=== PATIENT | male | born 1980 ===

== ENCOUNTER 2025-06-12 14:18 | Inpatient (IN) | payer OTHER, SELFPAY ==
[2025-06-12] VITALS (10 sets, daily range): BP systolic 130–168; BP diastolic 87–96; PULSE 79–101; RESP 15–23; TEMP 36.5–36.8; O2SAT 93–96; BMI 28.1
--- NOTE | 2025-06-12 14:30 | DI.CT.S_ITS ---
PROCEDURE: CT STROKE INDICATIONS: Left facial droop right limb tingling TECHNIQUE: Noncontrast 4.5 mm thick angled axial sections acquired from the foramen magnum to the vertex, with coronal reformats. For radiation dose reduction, the following was used: automated exposure control, adjustment of mA and/or kV according to patient size. COMPARISON: [facility], CT, CT ANGIO HEAD AND NECK, 06/12/2025, 14:38. FINDINGS: Image quality: Diagnostic. CSF spaces: Basal cisterns are patent. No extra-axial fluid collections. Ventricles are normal in size and shape. Brain: No midline shift. No intracranial mass effect or hemorrhage. Del Cid- white matter interface is normal. Skull and face: Calvarium and visualized facial bones are intact, without suspicious lesions. Sinuses: Visualized sinuses and mastoids are clear. IMPRESSION: No acute intracranial pathology. No acute intracranial hemorrhage is seen. If there is strong clinical suspicion for an acute stroke, please consider a brain MRI for further evaluation, as it is more sensitive (assuming that there is no contraindication to MRI). Note: Case discussed by telephone with Dr. Cross at 2:54 p.m. [place] time on June 12, 2025. This study fulfills neurological imaging criteria for inclusion or exclusion of acute stroke therapies based on available published neurological imaging guidelines. Dictated by: Jordan Gipson M.D. on 06/12/2025 at 13:52 Approved by: Jordan Gipson M.D. on 06/12/2025 at 13:54
--- NOTE | 2025-06-12 14:30 | EKG_ITS ---
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
--- NOTE | 2025-06-12 14:30 | DI.CT.S_ITS ---
PROCEDURE: CT ANGIO HEAD AND NECK INDICATIONS: Left facial droop right limb tingling TECHNIQUE: After the administration of intravenous contrast, 1 mm thick sections acquired from the aortic arch through the [place] of [place]. 3-dimensional uuxwhyc-wvjrwcmgp-pedhrsnsbk (MIP) and/or volume rendering reformats were acquired of the central intracranial vasculature and neck separately. For radiation dose reduction, the following was used: automated exposure control, adjustment of mA and/or kV according to patient size. COMPARISON: [facility], CT, CT STROKE, 06/12/2025, 14:38. FINDINGS: Image quality: There is streak artifact seen through the level of the shoulders. Cerebral CT Angiogram: Internal carotid arteries: No acute findings. Intracranial ICA are patent with no significant stenosis. No occlusion. No aneurysm. Anterior cerebral arteries: Unremarkable. No significant stenosis. No occlusion. No aneurysm. Middle cerebral arteries: Unremarkable. No significant stenosis. No occlusion. No aneurysm. Posterior cerebral arteries: Unremarkable. No significant stenosis. No occlusion. No aneurysm. Basilar artery: Unremarkable. No significant stenosis. No occlusion. No aneurysm. Vertebral arteries: Unremarkable as visualized. Dural venous sinuses: Unremarkable given phase of enhancement. Other: Arterial phase appearance of the brain parenchyma is unremarkable. Neck CT Angiogram: Internal carotid arteries: Unremarkable. No significant stenosis. No dissection or occlusion. Common carotid arteries: Unremarkable. No significant stenosis. No dissection or occlusion. External carotid arteries: Unremarkable. No occlusion. Vertebral arteries: Unremarkable. No significant stenosis. No dissection or occlusion. Aortic Arch and Mediastinum: Partially visualized aortic arch unremarkable without evidence of aneurysm. Origins of the great vessels unremarkable. Other: Arterial phase soft tissues of the neck and chest are unremarkable. Scrutiny is given to the course of the left facial nerve, including within the left parotid gland. No masses or other significant abnormalities can be seen. IMPRESSION: No imaging explanation is found for this patient's presenting symptoms. No significant intracranial arterial abnormality is seen. No significant abnormality is seen within the arteries of the neck. Note: Case discussed by telephone with Dr. Cross at 2:54 p.m. [place] time on June 12, 2025. Any quantitative measurements of stenosis were performed using NASCET criteria. Dictated by: Jordan Gipson M.D. on 06/12/2025 at 13:55 Approved by: Jordan Gipson M.D. on 06/12/2025 at 13:55
--- NOTE | 2025-06-12 14:32 | ED.NEUROSD ---
HPI - Neuro Symptoms/Deficit General Chief Complaint: Neuro Symptoms/Deficit Stated Complaint: stroke symptoms starting at 1300. Time Seen by Provider: 06/12/25 14:21 History of Present Illness HPI Narrative: Patient here with a friend. Onset 1.5 hours ago at 1:00 p.m. sudden onset of left facial droop and right upper extremity tingling. Patient does state sometimes his left eye feels dry. Patient denies any history heart attack strokes or diabetes no history of Escudero's palsy. 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 Related Data Home Medications ?Medication ?Instructions ?Recorded ?Confirmed evolocumab 140 mg/mL subcutaneous 140 mg SUBCUT Q2W 06/12/25 06/12/25 pen injector (Sherry Elias) lisdexamfetamine 40 mg capsule 40 mg PO QAM 06/12/25 06/12/25 trazodone 100 mg tablet 100 mg PO ONCE PM PRN insomnia 06/12/25 06/12/25 Allergies Allergy/AdvReac Type Severity Reaction Status Date / Time shrimp Allergy Intermediate Hives Verified 06/12/25 14:28 Review of Systems Review of Systems Narrative: GENERAL: Negative chills, fatigue, malaise, fever, sweats. HEENT: Negative sinus pain, ear pain, sore throat RESPIRATORY: Negative dyspnea, cough CARDIOVASCULAR: Negative chest pain, palpitations GASTROINTESTINAL: Negative vomiting, nausea, abdominal pain : Negative dysuria, frequency, hematuria MUSCULOSKELETAL: Negative muscle or bony pain SKIN: Negative rash, skin lesions NEUROLOGIC: Positive facial droop weakness, numbness ROS Unobtainable: All systems reviewed & are unremarkable except as noted in HPI and below Patient History Social History household members: spouse Smoking Status: Never smoker alcohol intake: never Exam Narrative Exam Narrative: GENERAL: in no distress, not toxic not dyspneic HEAD: Normocephalic. EYES: Pupils equal round ENT: Mucous membranes moist. NECK: Trachea midline. CARDIOVASCULAR: Regular rate and rhythm RESPIRATORY: Clear to auscultation. Breath sounds equal bilaterally. No wheezes, rales, or rhonchi. GASTROINTESTINAL: Abdomen soft, non-tender EXTREMITIES: No gross deformities. BACK: No flank tenderness. NEURO: AOx4. Clear speech, slight left lip droop, light touch feels different left forehead left face right arm and hand compared to the left side. Right thigh feels different on light touch compared to the left thigh. 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 Elevate each leg without drift. Negative pronator drift. Ojzyob-ib-zacv intact bilaterally SKIN: Warm and dry PSYCH: Not anxious, is cooperative Initial Vital Signs Initial Vital Signs: Vital Signs Pulse Rate 101 H 06/12/25 14:23 Blood Pressure 148/96 H 06/12/25 14:23 Pulse Oximetry 95 06/12/25 14:23 Scores NIH Stroke Scale Level of Conciousness: Alert, keenly responsive Ask month/age: Answers both questions correctly. Open/close eyes, close hand: Performs both tasks correctly Best gaze horizontal: Normal Visual pyle: No visual loss Facial palsy: Minor paralysis, flattened nasolabial fold, asymmetry on smiling Left arm drift: No drift for full 10 sec Right arm drift: No drift for full 10 sec Left leg drift: No drift for full 5 sec Right leg drift: No drift for full 5 sec Limb ataxia: Absent Sensory on face/arms/legs: Mild to moderate sensory loss, can tell touch Best language: No aphasia, normal Dysarthria: Normal Extinction or inattention: No abnormality Total NIH Stroke scale score: 2 Course Orders Ordered: Discontinued Medications Acetaminophen (Acetaminophen 325 Mg Tablet) 650 mg PO Q6H PRN PRN Reason: Fever/Mild Pain (1-3) Last Admin: 06/14/25 08:43 Dose: 650 mg Documented By: Admin: 06/13/25 15:11 Dose: 650 mg Documented By: Admin: 06/13/25 08:10 Dose: 650 mg Documented By: Admin: 06/12/25 23:59 Dose: 650 mg Documented By: Admin: 06/12/25 17:00 Dose: 650 mg Documented By: CHRIST Artificial Tears (Carboxymethylcellulose Drops) 1 drops EYE-BOTH PRN PRN PRN Reason: Dry Eye(s) Aspirin (Aspirin Ec 81 Mg Tablet) 81 mg PO NOW ONE Stop: 06/12/25 15:30 Last Admin: 06/12/25 15:42 Dose: 81 mg Documented By: CHRIST Aspirin (Aspirin Ec 81 Mg Tablet) 81 mg PO DAILY [facility] Last Admin: 06/14/25 08:43 Dose: 81 mg Documented By: Admin: 06/13/25 08:06 Dose: 81 mg Documented By: DAILY Atorvastatin Calcium (Atorvastatin 20 Mg Tablet) [address] [facility] Last Admin: 06/13/25 20:23 Dose: Not Given Documented By: Admin: 06/12/25 22:10 Dose: Not Given Documented By: Clopidogrel Bisulfate (Clopidogrel 75 Mg Tablet) 300 mg PO NOW ONE Stop: 06/12/25 15:30 Last Admin: 06/12/25 15:42 Dose: 300 mg Documented By: CHRIST Clopidogrel Bisulfate (Clopidogrel 75 Mg Tablet) [address] [facility] Last Admin: 06/14/25 08:43 Dose: 75 mg Documented By: Admin: 06/13/25 08:06 Dose: 75 mg Documented By: DAILY Sodium Chloride (Normal Saline 0.9%) 500 mls @ 1,000 mls/hr IV BOLUS ONE Stop: 06/12/25 15:00 Last Infusion: 06/12/25 15:39 Dose: Infused Documented By: Admin: 06/12/25 14:55 Dose: 1,000 mls/hr Documented By: CHRIST Metoclopramide HCl (Metoclopramide Hcl 5 Mg Tablet) 10 mg PO Q6H PRN PRN Reason: Nausea Naloxone HCl (Naloxone 0.4 Mg/Ml Vial) 0.2 mg IV Q2MIN PRN PRN Reason: Opiate Reversal Ondansetron HCl (Ondansetron 4 Mg/2 Ml Inj) 4 mg IV NOW ONE Stop: 06/12/25 14:34 Last Admin: 06/12/25 14:46 Dose: 4 mg Documented By: CHRIST Ondansetron HCl (Ondansetron 4 Mg/2 Ml Inj) 4 mg IV Q4HR PRN PRN Reason: Nausea And Vomiting Last Admin: 06/14/25 13:12 Dose: 4 mg Documented By: Admin: 06/13/25 18:10 Dose: 4 mg Documented By: Admin: 06/13/25 11:37 Dose: 4 mg Documented By: Admin: 06/13/25 08:09 Dose: 4 mg Documented By: Admin: 06/13/25 00:00 Dose: 4 mg Documented By: Admin: 06/12/25 18:23 Dose: 4 mg Documented By: JOSE DE JESUS Oxycodone HCl (Oxycodone Ir 5 Mg Tablet) 5 mg PO NOW ONE Stop: 06/12/25 17:41 Last Admin: 06/12/25 18:23 Dose: 5 mg Documented By: JOSE DE JESUS Oxycodone HCl (Oxycodone Ir 5 Mg Tablet) 5 mg PO Q4HR PRN PRN Reason: Pain, Moderate (4-6) Last Admin: 06/14/25 03:16 Dose: 5 mg Documented By: Admin: 06/13/25 18:49 Dose: 5 mg Documented By: Admin: 06/13/25 08:09 Dose: 5 mg Documented By: Admin: 06/13/25 00:00 Dose: 5 mg Documented By: Polyethylene Glycol (Polyethylene Glycol 3350 17 Gm Powd.Pack) [address] [facility] Last Admin: 06/14/25 10:57 Dose: 17 gm Documented By: AUGUST Prednisone (Prednisone 20 Mg Tablet) [address] [facility] Last Admin: 06/14/25 08:44 Dose: 50 mg Documented By: Admin: 06/13/25 08:06 Dose: 50 mg Documented By: Admin: 06/12/25 18:23 Dose: 50 mg Documented By: JOSE DE JESUS Prochlorperazine (Prochlorperazine 10 Mg/2 Ml Vial) 5 mg IV NOW ONE Stop: 06/13/25 16:46 Last Admin: 06/13/25 21:45 Dose: Not Given Documented By: TRACY Prochlorperazine (Prochlorperazine 10 Mg/2 Ml Vial) 5 mg IV NOW ONE Stop: 06/13/25 21:46 Last Admin: 06/13/25 21:46 Dose: 5 mg Documented By: TRACY Prochlorperazine (Prochlorperazine 10 Mg/2 Ml Vial) 10 mg IV Q6H PRN PRN Reason: Nausea Last Admin: 06/14/25 10:57 Dose: 10 mg Documented By: AUGUST Sennosides (Sennosides 8.6 Mg Tablet) 8.[address] [facility] Sodium Chloride (Sodium Chloride 0.9% Flush) [address] [facility] Last Admin: 06/14/25 08:44 Dose: 10 ml Documented By: AUGUST Sodium Chloride (Sodium Chloride 0.9% Flush) 10 ml IV PRN PRN PRN Reason: Flush Trazodone HCl (Trazodone 50 Mg Tablet) [address] [facility] Last Admin: 06/13/25 21:45 Dose: Not Given Documented By: TRACY Valacyclovir HCl (Valacyclovir 500 Mg Tablet) 1,[address] [facility] Last Admin: 06/14/25 08:48 Dose: 1,000 mg Documented By: Admin: 06/13/25 21:39 Dose: 1,000 mg Documented By: Admin: 06/13/25 15:09 Dose: 1,000 mg Documented By: Admin: 06/13/25 08:06 Dose: 1,000 mg Documented By: Admin: 06/12/25 21:41 Dose: 1,000 mg Documented By: Admin: 06/12/25 18:24 Dose: 1,000 mg Documented By: JOSE DE JESUS Vital Signs Vital signs: Vital Signs - 8 hr 06/12/25 14:23 06/12/25 14:23 06/12/25 14:28 Temperature 98.2 F Pulse Rate 101 H 101 H Respiratory Rate 16 Blood Pressure 148/96 H 148/96 H Pulse Oximetry 95 95 Oxygen Delivery Method Room Air 06/12/25 14:30 06/12/25 14:33 06/12/25 14:33 Temperature Pulse Rate 100 H 92 H Respiratory Rate Blood Pressure 168/96 H Pulse Oximetry 96 94 Oxygen Delivery Method 06/12/25 14:44 06/12/25 14:44 Temperature Pulse Rate 101 H Respiratory Rate 18 Blood Pressure 138/87 Pulse Oximetry 93 Oxygen Delivery Method Room Air MDM - Neuro Symptoms/Deficit Lab Data 06/12/25 14:31 06/12/25 14:31 Labs: Lab Results 06/12/25 06/12/25 Range/Units 14:24 14:31 WBC 4.6 (4.5-11.0) X10^3/uL RBC 5.12 (4.5-5.9) X10^6/uL Hgb 13.7 (13.5-17.5) g/dL Hct 40.5 L (41-53) % MCV 79.1 L (80-100) fL MCH 26.7 (26-34) PG MCHC 33.8 (30-36) % RDW 15.0 H (11.6-14.8) % Plt Count 237 (150-400) X10^3/uL Neut % (Auto) 51.0 (50-75) % Lymph % (Auto) 38.3 (25-40) % Miller % (Auto) 7.3 (3-14) % Eos % (Auto) 2.6 (2-4) % Baso % (Auto) 0.8 (0-2) % Neut # (Auto) 2400 (1455-2018) /uL Lymph # (Auto) 1800 (0018-2861) /uL Miller # (Auto) 300 (0-900) /uL Eos # (Auto) 100 (0-450) /uL Baso # (Auto) 0 (0-100) /uL PT 11.3 (9.4-12.5) SECONDS INR 1.0 (0.9-1.3) APTT 29 (25.1-36.5) SECONDS Sodium 138 (137-145) mmol/L Potassium 3.7 (3.4-5.1) mmol/L Chloride 105 (98-107) mmol/L Carbon Dioxide 25 (22-32) mmol/L BUN 14 (9-20) mg/dL Creatinine 0.82 (0.66-1.25) mg/dL Estimated GFR > 60 (>60) mL/min BUN/Creatinine Ratio 17.1 (6-22) Glucose 94 (70-99) mg/dL POC Whole Bld Glucose 86 (70-99) mg/dL Hemoglobin A1c 5.5 (4.0-6.0) % Calcium 9.1 (8.4-10.2) mg/dL Total Bilirubin 0.7 (0.2-1.3) mg/dL AST 36 (17-59) IU/L ALT 37 (<50) IU/L Alkaline Phosphatase 117 (38-126) U/L Total Creatine Kinase 220 H (55-170) U/L Troponin I < 0.012 (0.01-0.034) ng/mL Total Protein 7.9 (6.3-8.2) g/dL Albumin 4.7 (3.5-5.0) g/dL Globulin 3.2 (1.7-4.1) g/dL Albumin/Globulin Ratio 1.5 (1.0-2.8) Triglycerides 86 (35-150) mg/dL Cholesterol 118 L (140-199) mg/dL LDL Cholesterol, Calc 51 (<100) mg/dL HDL Cholesterol 50 (40-60) mg/dL Imaging Data CT scan - head: Radiologist's Impression: [address] [address] [address] Scan Report Signed Patient: Jose Elias Hussein MR#: [id number] : 1980 Acct:[id number] Age/Sex: 45 / M Date of Service: 06/12/25 Loc: ED Accession Number: [id number] Procedure: CT Stroke Ordering Provider: Son Cross MD PROCEDURE: CT STROKE INDICATIONS: Left facial droop right limb tingling TECHNIQUE: Noncontrast 4.5 mm thick angled axial sections acquired from the foramen magnum to the vertex, with coronal reformats. For radiation dose reduction, the following was used: automated exposure control, adjustment of mA and/or kV according to patient size. COMPARISON: [facility], CT, CT ANGIO HEAD AND NECK, 06/12/2025, 14:38. FINDINGS: Image quality: Diagnostic. CSF spaces: Basal cisterns are patent. No extra-axial fluid collections. Ventricles are normal in size and shape. Brain: No midline shift. No intracranial mass effect or hemorrhage. Del C[place]-white matter interface is normal. Skull and face: Calvarium and visualized facial bones are intact, without suspicious lesions. Sinuses: Visualized sinuses and mastoids are clear. IMPRESSION: No acute intracranial pathology. No acute intracranial hemorrhage is seen. If there is strong clinical suspicion for an acute stroke, please consider a brain MRI for further evaluation, as it is more sensitive (assuming that there is no contraindication to MRI). Note: Case discussed by telephone with Dr. Cross at 2:54 p.m. [place] time on June 12, 2025. This study fulfills neurological imaging criteria for inclusion or exclusion of acute stroke therapies based on available published neurological imaging guidelines. Dictated by: Jordan Gipson M.D. on 06/12/2025 at 13:52 Approved by: Jordan Gipson M.D. on 06/12/2025 at 13:54 CTA - brain/neck: Radiologist's Impression: [address] [address] [address] Scan Report Signed Patient: Jose Elias Hussein MR#: [id number] : 1980 Acct:[id number] Age/Sex: 45 / M Date of Service: 06/12/25 Loc: ED Accession Number: [id number] Procedure: CT angio head and neck Ordering Provider: Son Cross MD PROCEDURE: CT ANGIO HEAD AND NECK INDICATIONS: Left facial droop right limb tingling TECHNIQUE: After the administration of intravenous contrast, 1 mm thick sections acquired from the aortic arch through the [place] of [place]. 3-dimensional wxluzai-caafzckcc-qvmdkwrgnm (MIP) and/or volume rendering reformats were acquired of the central intracranial vasculature and neck separately. For radiation dose reduction, the following was used: automated exposure control, adjustment of mA and/or kV according to patient size. COMPARISON: [facility], CT, CT STROKE, 06/12/2025, 14:38. FINDINGS: Image quality: There is streak artifact seen through the level of the shoulders. Cerebral CT Angiogram: Internal carotid arteries: No acute findings. Intracranial ICA are patent with no significant stenosis. No occlusion. No aneurysm. Anterior cerebral arteries: Unremarkable. No significant stenosis. No occlusion. No aneurysm. Middle cerebral arteries: Unremarkable. No significant stenosis. No occlusion. No aneurysm. Posterior cerebral arteries: Unremarkable. No significant stenosis. No occlusion. No aneurysm. Basilar artery: Unremarkable. No significant stenosis. No occlusion. No aneurysm. Vertebral arteries: Unremarkable as visualized. Dural venous sinuses: Unremarkable given phase of enhancement. Other: Arterial phase appearance of the brain parenchyma is unremarkable. Neck CT Angiogram: Internal carotid arteries: Unremarkable. No significant stenosis. No dissection or occlusion. Common carotid arteries: Unremarkable. No significant stenosis. No dissection or occlusion. External carotid arteries: Unremarkable. No occlusion. Vertebral arteries: Unremarkable. No significant stenosis. No dissection or occlusion. Aortic Arch and Mediastinum: Partially visualized aortic arch unremarkable without evidence of aneurysm. Origins of the great vessels unremarkable. Other: Arterial phase soft tissues of the neck and chest are unremarkable. Scrutiny is given to the course of the left facial nerve, including within the left parotid gland. No masses or other significant abnormalities can be seen. IMPRESSION: No imaging explanation is found for this patient's presenting symptoms. No significant intracranial arterial abnormality is seen. No significant abnormality is seen within the arteries of the neck. Note: Case discussed by telephone with Dr. Brennick at 2:54 p.m. [place] time on June 12, 2025. Any quantitative measurements of stenosis were performed using NASCET criteria. Dictated by: Jordan Gipson M.D. on 06/12/2025 at 13:55 Approved by: Jordan Gipson M.D. on 06/12/2025 at 13:55 [facility] Narrative Medical decision making narrative: Patient here with a friend. Onset 1.5 hours ago at 1:00 p.m. sudden onset of left facial droop and right upper extremity tingling. Patient does state sometimes his left eye feels dry. Patient denies any history heart attack strokes or diabetes no history of Escudero's palsy. 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 After history and exam, CT head CT angio head and neck normal saline EKG CBC CMP troponin [facility] Medical records reviewed: No recent visit for this complaint Differential considered: Includes but not limited to stroke TIA Escudero's palsy Lab Test results independently reviewed as above. Pertinent findings: WBC 4.6 hemoglobin 13.7 INR 1.0 sodium 138 potassium 3.7 glucose 94 troponin less than 0.012 Independently reviewed EKG normal sinus rhythm rate 98 Imaging studies independently reviewed: 2:[address] head without contrast no acute finding reviewed with radiologist, CT angiogram head and neck no acute finding Consultations: 3:03 p.m.. On phone, with [facility] tele stroke. Awaiting for neurologist. 3:[address] vigil, she will get her attending to likely tele video with patient. 3:18 p.m.. Neurologist has called back from [facility]. She states she spoke with her attending. No TNK or tPA at this time. Score of 2. Not debilitating symptoms. They will call back. Proceed with dual platelets and MRI. Patient to be admitted for observation No teleconference needed at this time. As they are not doing TNK. 3:25 p.m.. I spoke with hospitalist, Dr. Carr, he will admit patient Re-evaluations: 3:23 p.m.. Updated patient results and my discussion with [facility] tele stroke. No TNK at this time as low NIH score and not debilitating symptoms. 3:32 p.m.. Updated patient treatment plan he does agree. Admission MRI echocardiogram dual antiplatelet therapy. He is on Repatha for cholesterol, he is not on any antiplatelets. Discussion: Appropriate for admission for balance of workup for possible TIA/stroke. Diagnosis: Left facial droop Discharge Plan Departure Patient Disposition: Admitted as Observation Clinical Impression: Facial droop Admit Date/Time: 06/12/25 15:47 Admit Provider: Luis Armando Carr
[2025-06-12 14:40] LABS: Add Manual Diff / Slide Review NO; Hematocrit 40.5 % (41-53); Hemoglobin 13.7 g/dL (13.5-17.5); Lymphocytes Absolute Auto 1800 /uL (1100-4500); Mean Corpuscular HGB Conc 33.8 % (30-36); Mean Corpuscular Hemoglobin 26.7 PG (26-34); Mean Corpuscular Volume 79.1 fL (80-100); Platelet Count 237 X10^3/uL (150-400)
[2025-06-12 14:46] LABS: INR 1.0 (0.9-1.3); Prothrombin Time 11.3 SECONDS (9.4-12.5)
[2025-06-12] MEDS: ONDANSETRON 4 MG/2 ML INJ IV ×2 (14:46→18:23)
[2025-06-12 14:49] LABS: PTT Partial Thromboplastin Tim 29 SECONDS (25.1-36.5)
[2025-06-12 14:50] LABS: Alanine Aminotransferase 37 IU/L (<50); Albumin 4.7 g/dL (3.5-5.0); Albumin Globulin Ratio 1.5 (1.0-2.8); Alkaline Phosphatase 117 U/L (38-126); Blood Urea Nitrogen 14 mg/dL (9-20); Calcium 9.1 mg/dL (8.4-10.2); Carbon Dioxide 25 mmol/L (22-32); Chloride 105 mmol/L (98-107); Creatine Kinase 220 U/L (55-170); Estimated Glomerular Filt Rate > 60 mL/min (>60); Globulin 3.2 g/dL (1.7-4.1); Glucose 94 mg/dL (70-99); HEMOLYSIS < 15 (0-50); Potassium 3.7 mmol/L (3.4-5.1); Sodium 138 mmol/L (137-145); Total Protein 7.9 g/dL (6.3-8.2)
[2025-06-12] MEDS: SODIUM CHLORIDE 0.9% 500 ML 1000 ML IV (14:55)
[2025-06-12 15:02] LABS: Troponin I < 0.012 ng/mL (0.01-0.034)
[2025-06-12] MEDS: CLOPIDOGREL 75 MG TABLET 300 MG PO (15:42)
[2025-06-12] MEDS: ASPIRIN EC 81 MG TABLET PO (15:42)
--- NOTE | 2025-06-12 16:03 | DI.MRI.S_ITS ---
PROCEDURE: MR HEAD/BRAIN WO CON INDICATIONS: TIA TECHNIQUE: Noncontrast axial T1 spin echo, axial T2 fast spin echo, sagittal and axial FLAIR, coronal T2 fast spin echo, axial gradient echo, axial diffusion and ADC through the brain. COMPARISON: [facility], CT, CT STROKE, 06/12/2025, 14:38. FINDINGS: Image quality: Excellent. CSF Spaces: Basal cisterns are patent. No extra-axial fluid collections. Ventricles are normal in size and shape. Brain: No intracranial masses or hemorrhage. Del Cid/white matter interface is normal. Brainstem appears normal. Diffusion-weighted images demonstrate no acute infarct. No chronic ischemic insults. Normal intravascular flow voids are present. Skull and face: Calvarium has normal marrow signal. Orbits appear normal. Sinuses: Sinuses and mastoids are clear. IMPRESSION: Unremarkable brain MRI. No acute intracranial process. Dictated by: Inocente Hughes M.D. on 06/12/2025 at 17:11 Approved by: Inocente Hughes M.D. on 06/12/2025 at 17:13
--- NOTE | 2025-06-12 16:16 | PM.HP.1 ---
History of Present Illness History of Present Illness Date Patient Seen: 06/12/25 Time Patient Seen: 17:00 Chief complaint: stroke symptoms starting at 1300. Narrative: Patient was a 45-year-old male with a known history of CAD with an LAD 20% stenosis as well as familial hyperlipidemia. He presents with a headache, right neck stiffness, a left facial droop, as well as not feeling right and mild tingling in the right side of his body. Some of the symptoms began yesterday but the neck pain and facial symptoms began today. 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 He was CT of the brain and CTA were negative. He was mildly hypertensive. Case was discussed with tele neuro in the emergency department with recommendations for dual antiplatelet therapy, although the probability was at this was early Escudero's palsy. The patient notes that he does have abnormal speech and some drooling as well as abnormal ability to control a breath puff. He was transferred to the floor where he was found to have a facial droop as well as a droopy left eye. MRI of the brain was ordered and was resulted as normal. [facility], [facility] Social History household members: spouse Smoking Status: Never smoker alcohol intake: never Meds Home Medications and Allergies Home Medications ?Medication ?Instructions ?Recorded ?Confirmed ?Type evolocumab 140 mg/mL subcutaneous 140 mg SUBCUT Q2W 06/12/25 06/12/25 History pen injector (Sherry Elias) lisdexamfetamine 40 mg capsule 40 mg PO QAM 06/12/25 06/12/25 History trazodone 100 mg tablet 100 mg PO ONCE PM PRN insomnia 06/12/25 06/12/25 History Allergies Allergy/AdvReac Type Severity Reaction Status Date / Time shrimp Allergy Intermediate Hives Verified 06/12/25 14:28 Review of Systems Review of Systems Narrative: All else reviewed and otherwise unremarkable except as noted in the history and physical. Exam Vital Signs (past 8 hours): - 06/12/25 14:23 06/12/25 14:23 06/12/25 14:28 Temperature 98.2 F Pulse Rate 101 H 101 H Respiratory Rate 16 Blood Pressure 148/96 H 148/96 H Pulse Oximetry 95 95 Oxygen Delivery Method Room Air 06/12/25 14:30 06/12/25 14:33 06/12/25 14:33 Temperature Pulse Rate 100 H 92 H Respiratory Rate Blood Pressure 168/96 H Pulse Oximetry 96 94 Oxygen Delivery Method 06/12/25 14:44 06/12/25 14:44 Temperature Pulse Rate 101 H Respiratory Rate 18 Blood Pressure 138/87 Pulse Oximetry 93 Oxygen Delivery Method Room Air Oxygen Delivery Method Room Air Narrative Exam Narrative: NAD, alert and oriented, fluent speech, calm. Normocephalic skull, EOMI, anicteric sclera, symmetric pupils. Oropharynx unremarkable, no droop. Neck supple, midline trachea, no adenopathy. Lungs clear, normal rate and effort. Heart regular, no murmur gallop or rub. Abdomen is soft, non distended and non tender. Extremities are free of edema. Skin is free of rash or lesions. Joints are not swollen or deformed. Judgment appears to be normal. Neuro: Motor strength is 5/5 all arms and legs. Negative pronator drift, normal tandem gait, normal toe to heel, normal walking on toes and heels. He does have a left facial droop which affects his eye with ptosis, as well as the entire left side of the same. There appears to be some less involvement of the left forehead. Objective Imaging Multiple studies:: Radiologist's impression: CT of the brain, CTA of the head and neck, and MRI of the brain are all normal. Labs 06/12/25 14:31 06/12/25 14:31 Labs: Laboratory Results - last 24 hr 06/12/25 06/12/25 14:24 14:31 WBC 4.6 RBC 5.12 Hgb 13.7 Hct 40.5 L MCV 79.1 L MCH 26.7 MCHC 33.8 RDW 15.0 H Plt Count 237 Neut % (Auto) 51.0 Lymph % (Auto) 38.3 [place] % (Auto) 7.3 Eos % (Auto) 2.6 Baso % (Auto) 0.8 Neut # (Auto) 2400 Lymph # (Auto) 1800 [place] # (Auto) 300 Eos # (Auto) 100 Baso # (Auto) 0 PT 11.3 INR 1.0 APTT 29 Sodium 138 Potassium 3.7 Chloride 105 Carbon Dioxide 25 BUN 14 Creatinine 0.82 Estimated GFR > 60 BUN/Creatinine Ratio 17.1 Glucose 94 POC Whole Bld Glucose 86 Calcium 9.1 Total Bilirubin 0.7 AST 36 ALT 37 Alkaline Phosphatase 117 Total Creatine Kinase 220 H Troponin I < 0.012 Total Protein 7.9 Albumin 4.7 Globulin 3.2 Albumin/Globulin Ratio 1.5 Assessment & Plan Assessment & Plan narrative: 1. 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 2. Transient right body tingling as well as right neck pain, present on admission and improving. 3. Hyperlipidemia, stable. 4. CAD, stable. Plan: -he was given aspirin load of Plavix load in the ED. He was on chronic injectable anti lipid therapy. The patient receives injections every 2 weeks. -he will be given oxycodone as needed for his neck pain. -he will be given prednisone 50 mg q.d. x5 days, and valacyclovir 1000 mg t.i.d. to treat Escudero's palsy. He will be observed overnight, anticipate 1 midnight in the hospital. This supports observation status. Full code. is proxy decision maker. Time-Based Coding :: 35 min spent with patient and on the chart (including review of chart, obtaining history, exam, reviewing outside data, placing orders, documenting exam and treatment plan, and counseling patient) on 06/12. Quality MIPS - Admit I confirm the patient?s Advance Care Plan is present, Code status is documented, Surrogate decision maker is in patient?s record [If Yes, STOP here]: Yes MIPS - Meds 'Current medications' to include all prescriptions, [id number] products, herbals, cannabis/cannabidiol products, and vitamin/mineral/dietary (nutritional) supplements. I have utilized all available resources to obtain, update, or review the patient?s current medications. [If Yes, STOP here]: Yes
--- NOTE | 2025-06-12 16:39 | PT.IIE ---
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 (Other details [place] visiting their new home ) Social History Additional Social Pt lives with , did not have time for full home History Comment arrangement questioning given design technician arrived M2 PT-IP Current Condition Start: 06/12/25 16:30 Freq: NEEDED Status: Active Protocol: Document 06/12/25 16:15 MB (Rec: 06/12/25 16:38 MB Desktop) Physical Therapy Current Condition Current Condition Evaluation Date 06/12/25 Treatment Diagnosis R facial droop and numbness and right UE and LE paresthesias M3 PT-IP Subjective Start: 06/12/25 16:30 Freq: NEEDED Status: Active Protocol: Document 06/12/25 16:15 MB (Rec: 06/12/25 16:38 MB Desktop) Subjective Physical Therapy Visit Type Type Initial Evaluation Visit Start Time 16:15 Visit Stop Time 16:30 Number of SALVAGE CLERK Visits 0 Physical Therapy Visit Comments Patient Comments Pt reports he felt like he had a cold with high discomfort in ears last night. He reports right facial droop and numbness, vision changes and right UE and LE paresthesias today. Therapy Pain Assessment Pain When Pain Assessed At Rest Pain Present Pain Present Denied Pain M4 PT-IP Mobility and Gait Start: 06/12/25 16:30 Freq: NEEDED Status: Active Protocol: Document 06/12/25 16:15 MB (Rec: 06/12/25 16:38 MB Desktop) PT-Bed Mobility Assessment Supine to Sit Supine to Sit Independent Scooting Scooting to Edge of Independent Bed Scooting Up and Down Independent in Bed PT-Transfer Assessment Sit to and From Stand Sit to and from Independent Stand Equipment Transfer Assistive None Device Transfer Ability Level of Assist Independent Gait Assessment Gait Gait Assistance Independent Required: Distance (Feet) 75 Assistive Devices Assistive Device None Gait Deviations General Gait Pattern Within Normal Limits Comments Gait Comments Fast and slow gait, backwards gait, gait with eyes closed and turns all normal Stair Climbing Assessment Comments Stair Climbing Unable to perform in ED Comments PT-Balance Assessment Sitting Balance and Reactions Static Sitting Normal Balance Ability Dynamic Sitting Normal Balance Ability Standing Balance and Reactions Static Standing Normal Balance Ability Dynamic Standing Good Balance Ability M5 PT-IP Objective Assessments Start: 06/12/25 16:30 Freq: NEEDED Status: Active Protocol: Document 06/12/25 16:15 MB (Rec: 06/12/25 16:38 MB Desktop) Orientation Orientation/Cognition Level of Alertness Alert Language Function No Deficits Noted Ability Safety Awareness Understands Safety Issues Memory Description No Deficits Noted Gross Range of Motion Upper Extremity ROM Assessment Within Functional Limits Lower Extremity ROM Assessment Within Functional Limits Strength Upper Extremity Strength Assessment Within Functional Limits Lower Extremity Strength Assessment Within Functional Limits Coordination Assessment Gross Coordination Gross Coordination Impaired Assessment Finger to Nose Test L hand slow, right handed Sensation Assessment Comments Sensation Comments Impaired right face, numb, smile droops on the right Muscle Tone Muscle Tone WNL Yes M7 PT-IP Assessment and Plan Start: 06/12/25 16:30 Freq: NEEDED Status: Active Protocol: Document 06/12/25 16:15 MB (Rec: 06/12/25 16:38 MB Desktop) PT Summary Assessment and Plan Potential Rehabilitation Good Potential Status of Condition Evolving at Evaluation Summary Impairments Coordination Assessment Summary 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 He presents with right facial droop and numbness and right UE and LE paresthesias. B UE and LE range and strength currently normal. Left finger to nose is slow and dysmetric and he reports mild vision changes and that he is right handed. Currently, he gait looks normal. Pt is going to be adm to floor and will keep him on PT caseload to further assess LE coordination, balance and steps next date to make sure that there is no progression of sxs and to adjust d/c recs as appropriate. Currently, no PT needs at d/c. Goals Bed Mobility Goal Independent Transfer Goal Independent Gait Goal Independent Gait Distance 200 Other Goals Pt will ascend and descend steps without rail and with I. Days to Meet Goals 5 Frequency of Treatment Frequency Of Once a Day Treatment Treatment Plan Physical Therapy Bed Mobility Training,Transfer Training,Gait Training, Treatment Plan Therapeutic Exercise,Balance Retraining,Discharge Planning,Hot or Cold Pack,Neuromuscular Re-ed, Coordination Retraining,Manual Therapy Other LE coordination testing, stair training Recommendations and Next Treatment Focus Recommendations To Nursing Amount of Assist Standby Assistance Needed Discharge Recommendations Other Discharge Currently, no PT needs at d/c and re-evaluate next date Recommendations and update as needed Transportation Needs Private Vehicle at Discharge - PT assist x1
[2025-06-12] MEDS: ACETAMINOPHEN 325 MG TABLET 650 MG PO ×2 (17:00→23:59)
[2025-06-12 17:32] LABS: Cholesterol 118 mg/dL (140-199); HDL Cholesterol 50 mg/dL (40-60); Triglycerides 86 mg/dL (35-150)
[2025-06-12 17:33] LABS: Hemoglobin A1C% w Est Avg Glu 5.5 % (4.0-6.0)
[2025-06-12] MEDS: OXYCODONE IR 5 MG TABLET PO (18:23)
[2025-06-13] VITALS: BP 106/62; PULSE 67; RESP 16; TEMP 36.3; O2SAT 96
[2025-06-13 06:00] VITALS: BP 121/89; PULSE 73; RESP 15; TEMP 36.6; O2SAT 98
[2025-06-13 07:11] LABS: Cholesterol 129 mg/dL (140-199); HDL Cholesterol 55 mg/dL (40-60); Triglycerides 48 mg/dL (35-150)
--- NOTE | 2025-06-13 07:47 | DI.MRI.S_ITS ---
PROCEDURE: MR HEAD/BRAIN WO/W CON INDICATIONS: new neuro symptoms TECHNIQUE: Noncontrast axial T1 spin echo, axial T2 fast spin echo, sagittal and axial FLAIR, coronal T2 fast spin echo, axial gradient echo, axial diffusion and ADC through the brain. After the administration of contrast, axial and coronal and sagittal 3D VIBE or T1 spin echo with fat saturation through the brain. COMPARISON: [facility], CT, CT ANGIO HEAD AND NECK, 06/12/2025, 14:38. [facility], CT, CT STROKE, 06/12/2025, 14:38. FINDINGS: Image quality: Excellent. CSF Spaces: Basal cisterns are patent. No extra-axial fluid collections. Ventricles are normal in size and shape. Brain: No midline shift. No intracranial bleeds or masses. No abnormal intracranial enhancement. The brainstem appears normal. Diffusion-weighted images demonstrate no acute infarct. No chronic ischemic insults. Normal intravascular flow voids are present. Skull and face: Calvarial marrow is normal in signal. Orbits appear normal. Sinuses: Sinuses and mastoids appear clear. IMPRESSION: Normal for age, source of reported symptomatology is not identified. Dictated by: Sha Alonzo M.D. on 06/13/2025 at 13:06 Approved by: Sha Alonzo M.D. on 06/13/2025 at 13:09
[2025-06-13 08:00] VITALS: BP 135/90; PULSE 86; RESP 18; TEMP 36.3; O2SAT 94
[2025-06-13] MEDS: ASPIRIN EC 81 MG TABLET PO (08:06)
[2025-06-13] MEDS: CLOPIDOGREL 75 MG TABLET PO (08:06)
[2025-06-13] MEDS: ONDANSETRON 4 MG/2 ML INJ IV ×4 (08:09→18:10)
[2025-06-13] MEDS: OXYCODONE IR 5 MG TABLET PO ×3 (08:09→18:49)
[2025-06-13] MEDS: ACETAMINOPHEN 325 MG TABLET 650 MG PO ×2 (08:10→15:11)
[2025-06-13 12:00] VITALS: BP 138/87; PULSE 87; RESP 15; TEMP 36.3; O2SAT 94
--- NOTE | 2025-06-13 15:15 | PT.IPTN ---
Physical Therapy Treatment Note M2 PT-IP Current Condition Start: 06/12/25 16:30 Freq: NEEDED Status: Active Protocol: Document 06/12/25 16:15 MB (Rec: 06/12/25 16:38 MB Desktop) Physical Therapy Current Condition Current Condition Evaluation Date 06/12/25 Treatment Diagnosis R facial droop and numbness and right UE and LE paresthesias M3 PT-IP Subjective Start: 06/12/25 16:30 Freq: NEEDED Status: Active Protocol: Document 06/13/25 15:15 AB (Rec: 06/13/25 17:08 AB [id number]) Subjective Physical Therapy Visit Type Type Treatment Note Visit Start Time 15:15 Visit Stop Time 15:40 Number of TRUCK FARMER Visits 0 Physical Therapy Visit Comments Patient Comments agreeable to do PT M4 PT-IP Mobility and Gait Start: 06/12/25 16:30 Freq: NEEDED Status: Active Protocol: Document 06/13/25 15:15 AB (Rec: 06/13/25 17:08 AB [id number]) PT-Bed Mobility Assessment Supine to Sit Supine to Sit Independent Sit to Supine Sit to Supine Independent PT-Transfer Assessment Sit to and From Stand Sit to and from Independent Stand Equipment Transfer Assistive None Device Orthotic/Prosthetic No Devices or Brace: Comments Mobility Comments pt supine in bed and agreeable to do PT. stated that R UE/LE numbness resolved but continues to have R facial numbness and weakness. R facial droop noted and c/o diplopia. weakness of R side oral muscles with speech. Also noted L side deviation of tongue. supine to sit mod I. sit to stand mod I and ambulated in room without AD SBA. pt agreed to walk in the hallway towards stairs and completed SBA for safety. pt presents with antalgic gait with increase R sided leaning but without LOB. pt completed up/down steps using R rail. initially complete step through pattern but with unsteadiness and cued pt for step to pattern for safety and completed steps again SBA. pt ambulated back to his room SBA without AD. pt requested to go back to bed. sit to supine I. positioned pt in bed. call light and table placed within reach. per social work lecturer: pt plans to transfer to [facility] later today. informed pt that no further PT intervention in hospital needed at this time but will need outpt therapy services. pt agreed. Gait Assessment Gait Gait Assistance Standby Assistance Required: Distance (Feet) 125 Able to Maintain Yes Weight Bearing Status During Gait Assistive Devices Assistive Device None Orthotic/Prosthetic No Devices or Brace: Gait Deviations General Gait Pattern Antalgic Factors Limiting Gait Function Factors Limiting Decreased Strength Gait Function Stair Climbing Assessment Evaluation Level of Assist On Contact Guard Assistance Stairs Devices Stair Climbing Right Railing Assistive Devices Technique/Endurance Stair Climbing Ascend and Descend Direction Stair Climbing Step Over Step,Step to Step Technique Number of Steps 3 Climbed Stair Climbing Set # 3 Repetitions (reps) M5 PT-IP Objective Assessments Start: 06/12/25 16:30 Freq: NEEDED Status: Active Protocol: Document 06/12/25 16:15 MB (Rec: 06/12/25 16:38 MB Desktop) Orientation Orientation/Cognition Level of Alertness Alert Language Function No Deficits Noted Ability Safety Awareness Understands Safety Issues Memory Description No Deficits Noted Gross Range of Motion Upper Extremity ROM Assessment Within Functional Limits Lower Extremity ROM Assessment Within Functional Limits Strength Upper Extremity Strength Assessment Within Functional Limits Lower Extremity Strength Assessment Within Functional Limits Coordination Assessment Gross Coordination Gross Coordination Impaired Assessment Finger to Nose Test L hand slow, right handed Sensation Assessment Comments Sensation Comments Impaired right face, numb, smile droops on the right Muscle Tone Muscle Tone WNL Yes M6 PT-IP Treatment Start: 06/12/25 16:30 Freq: NEEDED Status: Active Protocol: Document 06/13/25 15:15 AB (Rec: 06/13/25 17:08 AB [id number]) Physical Therapy Treatment Education Education Provided Safety M7 PT-IP Assessment and Plan Start: 06/12/25 16:30 Freq: NEEDED Status: Active Protocol: Document 06/13/25 15:15 AB (Rec: 06/13/25 17:08 AB [id number]) PT Summary Assessment and Plan Potential Rehabilitation Fair Potential Summary Impairments Strength,Sensation,Gait Progress Towards Slow Progress due to Medical Issues Goals Assessment Summary pt requiring SBA for safety for ambulation without AD. pt continues to present with R facial numbness and weakness affecting speech and swallowing. pt with c/o diplopia but able to be steady during ambulation without incidences or tendencies of running into things . no further in hospital PT intervention needed at this time but will require outpt speech/OT services. Goals Bed Mobility Goal Independent Transfer Goal Independent Gait Goal Independent Gait Distance 200 Other Goals Pt will ascend and descend steps without rail and with I. Days to Meet Goals 5 Frequency of Treatment Frequency Of Discharge Treatment Treatment Plan Physical Therapy Bed Mobility Training,Transfer Training,Gait Training, Treatment Plan Therapeutic Exercise,Balance Retraining,Discharge Planning,Hot or Cold Pack,Neuromuscular Re-ed, Coordination Retraining,Manual Therapy Recommendations To Nursing Amount of Assist Standby Assistance Needed Discharge Recommendations Transportation Needs Private Vehicle at Discharge - PT assist 1
--- NOTE | 2025-06-13 15:23 | CM.DANOTE ---
DCP Assessment Note: Pt is a 45yo male, resident of [place], is admitted for facial droop, work up for possible stroke or neurological symptoms. Pt lives in a house with his , was staying at his property on [address]. Pt's Primary Care Provider is at [facility] and insurance is [facility]. Reviewed chart and discussed with multidisciplinary team pt's medical status and initial discharge needs. DCP met w/patient at bedside; introduced self and role. Patient was found in bed, alert and oriented, cooperative with assessment. Pt confirmed living situation and good support in spouse. 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 Updated pt contacts with spouse and sister contact information. Pt verbalized understanding of transfer to [facility] for further neurology work up, confirmed that he will be transported via BLS. Plan: Accepted for transfer to higher level of care, pending bed assignment and transport coordination. CM team will follow closely for coordination of discharge plans. Luc[facility] Os[facility] Discharge Planning/Care Management CM Discharge Assessment Start: 06/12/25 15:48 Freq: Status: Active Protocol: Document 06/13/25 15:15 MW (Rec: 06/13/25 15:17 MW Desktop) Discharge Planning Assessment Assigned Discharge JENNIFER Chowdhury Floor Installer DPOA/Assigned Natalia Gregory, Spouse Designee Name Contact Information [phone] Advance Directives? No History Provided By Patient,Medical Record Prior Living House Arrangements Household Members spouse Type of Drives own vehicle transporation used prior to admit Independent with ADL Yes 's Is patient alert and Yes oriented? Barriers to No Discharge Discharge Plan Transfer to Higher Level of Care Transportation BLS Arrangement Review Status In Process Please Provide Date 06/13/25 Initial DC Assessment Was Performed Next Review Type Continued Stay Review
--- NOTE | 2025-06-13 16:26 | PM.DS.1 ---
History of Present Illness History of Present Illness Chief complaint: stroke symptoms starting at 1300. Narrative: Patient was a 45-year-old male with a known history of CAD with an LAD 20% stenosis as well as familial hyperlipidemia. He presents with a headache, right neck stiffness, a left facial droop, as well as not feeling right and mild tingling in the right side of his body. Some of the symptoms began yesterday but the neck pain and facial symptoms began today. 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 He was CT of the brain and CTA were negative. He was mildly hypertensive. Case was discussed with tele neuro in the emergency department with recommendations for dual antiplatelet therapy, although the probability was at this was early Escudero's palsy. The patient notes that he does have abnormal speech and some drooling as well as abnormal ability to control a breath puff. He was transferred to the floor where he was found to have a facial droop as well as a droopy left eye. MRI of the brain was ordered and was resulted as normal. Discharge Providers Provider Date of admission: 06/12/25 15:47 Discharge Date: 06/13/25 Consults: 06/12/25 16:03 Consult to Discharge Planning Routine Comment: Consult to Occupational Therapy Evaluate & Treat Comment: Physician Instructions: Evaluate and treat Consult to Physical Therapy Evaluate & Treat Comment: Physician Instructions: Evaluate and Treat Consult to Speech Therapy Evaluate & Treat Comment: Physician Instructions: Evaluate and treat Discharge provider: Luis Armando Carr MD Summary Hospital Course Discharge Diagnosis: 1. Right sided facial droop. 2. Headache. 3. Diplopia (right gaze) 4. Right sided body tingling 5. HLD 6. CAD Hospital Course: The patient was admitted with right-sided facial droop. The initial thought was that this is likely Escudero's palsy. His initial MRI, CTA and CT were negative. He was given dual antiplatelet therapy in the ED after discussion with tele neuro. The patient was started on prednisone and valacyclovir on June 12. On the morning of the he had a more pronounced right facial droop and complained of diplopia with rightward gaze. Extraocular movements were investigated in the morning of the and he did. Have some degree of disc cut conjugate gaze when looking to the right upper right lateral and right lower pyle. He also noted diplopia from his perspective. He had a more pronounced headache on the morning of the . A repeat MRI with contrast was unremarkable. He was discussed with tele neuro again and ultimately a transfer is recommended for further evaluation. There was concern of possible other diagnoses such as myasthenia gravis, or Wang Harrington syndrome. The patient did have normal reflexes in ankles, knees, and biceps bilaterally. He did not appear to have fatigability with his ptosis. The transfer center was contacted and he was accepted for an inpatient bed for further evaluation by Neurology. For the 1st 20 hours of admission he would forehead sparing but later in the afternoon of the he does have evidence of forehead involvement of his weakness which is more consistent with Escudero's palsy. However, he was also complaining of possible vertigo and diplopia which did not fit with that diagnosis. Status at Discharge Cognitive/behavioral status at discharge: oriented Functional status at discharge: independent ambulation Overall status at discharge: patient is progressing back to baseline Time Spent with Patient Time spent: Greater than 30 minutes Exam Vital Signs (past 8 hours): - 06/13/25 12:00 Temperature 97.4 F L Pulse Rate 87 Respiratory Rate 15 Blood Pressure 138/87 Pulse Oximetry 94 Oxygen Flow Rate 0 Oxygen Delivery Method Room Air Oxygen Flow Rate 0 Narrative Exam Narrative: NAD, alert and oriented. Fluent speech. Lungs are clear, normal rate and effort. Heart is regular, no murmur gallop or rub. Abdomen is soft, non distended. Extremities are free of edema. Motor strength normal in arms and legs, negative pronator drift, normal gait, normal tandem gait. Reflexes are normal in the ankles knees and biceps bilaterally. He has a right facial droop, right ptosis, a dry right eye, and in the afternoon of the a more pronounced flaccid forehead. He complains of diplopia with any gaze movements to the right upper right lateral are right lower pyle. He appears to have some degree of dysconjugate gaze in those failed. The diplopia is binocular. Objective Imaging Multiple studies: : Radiologist's impression: MRI brain with and without: IMPRESSION: Normal for age, source of reported symptomatology is not identified. CTA head and neck: No imaging explanation is found for this patient's presenting symptoms. No significant intracranial arterial abnormality is seen. No significant abnormality is seen within the arteries of the neck. MRI brain: Unremarkable brain MRI. No acute intracranial process. CT brain: No acute intracranial pathology. No acute intracranial hemorrhage is seen. Labs 06/12/25 14:31 06/12/25 14:31 Labs: Laboratory Results - last 24 hr 06/12/25 06/13/25 14:31 05:40 Hemoglobin A1c 5.5 Triglycerides 86 48 Cholesterol 118 L 129 L LDL Cholesterol, Calc 51 64 HDL Cholesterol 50 55 PFSH Social History household members: spouse Smoking Status: Never smoker alcohol intake: never Discharge Assessment & Plan Assessment and Plan Assessment: 1. Right sided facial droop. 2. Headache. 3. Diplopia (right gaze) 4. Right sided body tingling 5. HLD 6. CAD Plan of Treatment: Transfer to [facility] for neurologic evaluation. Note that this patient presented with what early Escudero's Tamai this looks more like Escudero's palsy now with forehead involvment. However the patient was complaining of diplopia which is not consistent with the diagnosis. This case was discussed with Neurology and he will require more advance neurologic evaluation. Discharge Plan Discharge Plan Patient Disposition: [facility] Other facility: [facility] VTE Deep Vein Thrombosis/Pulmonary Embolism Present on Admission: No
--- NOTE | 2025-06-13 17:47 | OT.IP.EVAL ---
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 (Other details [place] visiting their new home ) Social History Household Members spouse Living Arrangements House M2 OT-IP Current Condition Start: 06/13/25 17:21 Freq: Status: Active Protocol: Document 06/13/25 17:21 [facility] (Rec: 06/13/25 17:47 [facility] Desktop) Occupational Therapy Current Condition Current Condition Evaluation Date 06/13/25 Treatment Diagnosis Neurological symptoms, possible Escudero's Palsy Diagnosis Onset Date 06/12/25 M3 OT- IP Subjective and Pain Start: 06/13/25 17:21 Freq: Status: Active Protocol: Document 06/13/25 17:21 [facility] (Rec: 06/13/25 17:47 [facility] Desktop) OT- Subjective Occupational Therapy Visit Type Type Initial Evaluation Visit Start Time 15:00 Visit Stop Time 15:20 Occupational Therapy Visit Comments Patient Comments Pt agreed to do Ot eval. Patient/Caregiver TO get better. Goals M4 OT- IP ADL's Start: 06/13/25 17:21 Freq: Status: Active Protocol: Document 06/13/25 17:21 [facility] (Rec: 06/13/25 17:47 [facility] Desktop) OT NIY-Ejay-Lnvnayh Comments OT Self-Feeding Pt having difficulty to keep his mouth closed while Comments eating. Pt's tongue dev slightly to the left. Pt educated to use a smaller straw and take smaller sips and bites. Pt having difficulty to control the rate liquis being taken in. Pt does admit that the smoothie he had earlier was much easier to swallow. Pt would benefit from modified barium swallow study. Pt's noted appear slightly swollen right lip and also difficulty to move his lip on the right side. Pt having to use his left hand to pull down his lip so better able to take a bite of food. OT ADL-Dressing Comments OT Dressing Comments Pt states able to do. OT ADL-Toileting Comments OT Toileting Pt states able to do, not tested. Comments M6 OT- IP Functional Cognition Start: 06/13/25 17:21 Freq: Status: Active Protocol: Document 06/13/25 17:21 [facility] (Rec: 06/13/25 17:47 [facility] Desktop) Cognitive Factors Limiting Selfcare Function Cognitive Ability Level of Alertness Alert Patient Orientation Name,Age,Birthday,Month,Date,Year,Day of Week,Place, Situation Attention Span Capable of Focused Attention,Capable of Sustained Ability Attention Ability to Follow Able to Follow Multi-Step Commands Commands Cognitive Comments Cognitive Assessment Pt appears intact and not wanting to try Gypsy Making Comments assessment as pt states has dyslexia and ADHD. Therefore best to have higher care assess as needed. OT- Vision and Hearing OT- Hearing Assessment OT- Hearing WFL Assessment OT- Vision Assessment Visual Acuity Glasses All The Time Visual Attentiveness Impaired Occular Pursuits Impaired Vertical Diplopia Present Vision Assessment Pt not able to having difficulty to scan with his right Comments eye and lags behind the left eye. Pt complaining of dry eyes.Pt may benefit from eye drops or to have his eye taped shut to prevent his eye from drying. M7 OT- IP Mobility and Balance Start: 06/13/25 17:21 Freq: Status: Active Protocol: Document 06/13/25 17:21 [facility] (Rec: 06/13/25 17:47 [facility] Desktop) OT-Transfer Assessment Sit to and From Stand Sit to and from Independent Stand Transfers Transfer Ability Independent Comments Mobility Comments Pt able to move independently in the room. OT- Balance Assessment Sitting Balance and Reactions Static Sitting Normal Balance Ability Dynamic Sitting Normal Balance Ability Standing Balance and Reactions Static Standing Normal Balance Ability Dynamic Standing Good Balance Ability M8 OT- IP Objective Assessments Start: 06/13/25 17:21 Freq: Status: Active Protocol: Document 06/13/25 17:21 [facility] (Rec: 06/13/25 17:47 [facility] Desktop) OT Strength Comments Strength Comments Pt states has not issues and was more concerned about his vision and swallowing. Would be good to have OT assess at higher level. M9 OT- IP Assessment and Plan Start: 06/13/25 17:21 Freq: Status: Active Protocol: Document 06/13/25 17:21 [facility] (Rec: 06/13/25 17:47 [facility] Desktop) OT Summary Assessment and Plan Potential Rehabilitation Excellent Potential Analytic Complexity Moderate at Evaluation Summary Progress Towards Slow Progress due to Medical Issues Goals Assessment Summary Pt MOD complexity and neurological symptoms and complaining of swallowing and vision issues. Pt will benefit from modified barium swallow study, assessment for BUE as pt states was fine and just wanting to focus on swallowing and vision needs. Pt to go to higher level of care. Discharge Recommendations Transportation Needs Private Vehicle at Discharge
[2025-06-13 20:09] VITALS: BP 123/90; PULSE 90; RESP 18; TEMP 36.6; O2SAT 96
[2025-06-13 21:46] VITALS: BP 123/90; PULSE 90
[2025-06-13] MEDS: PROCHLORPERAZINE 10 MG/2 ML VIAL 5 MG IV (21:46)
[2025-06-14] MEDS: OXYCODONE IR 5 MG TABLET PO (03:16)
--- NOTE | 2025-06-14 07:57 | PM.DS.1 ---
History of Present Illness History of Present Illness Date Patient Seen: 06/14/25 Chief complaint: stroke symptoms starting at 1300. Narrative: Patient was a 45-year-old male with a known history of CAD with an LAD 20% stenosis as well as familial hyperlipidemia. He presents with a headache, right neck stiffness, a left facial droop, as well as not feeling right and mild tingling in the right side of his body. Some of the symptoms began yesterday but the neck pain and facial symptoms began today. 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 He was CT of the brain and CTA were negative. He was mildly hypertensive. Case was discussed with tele neuro in the emergency department with recommendations for dual antiplatelet therapy, although the probability was at this was early Escudero's palsy. The patient notes that he does have abnormal speech and some drooling as well as abnormal ability to control a breath puff. He was transferred to the floor where he was found to have a facial droop as well as a droopy left eye. MRI of the brain was ordered and was resulted as normal. Discharge Providers Provider Date of admission: 06/12/25 15:47 Discharge Date: 06/14/25 Consults: 06/12/25 16:03 Consult to Discharge Planning Routine Comment: Consult to Occupational Therapy Evaluate & Treat Comment: Physician Instructions: Evaluate and treat Consult to Physical Therapy Evaluate & Treat Comment: Physician Instructions: Evaluate and Treat Consult to Speech Therapy Evaluate & Treat Comment: Physician Instructions: Evaluate and treat Discharge provider: Eladio Kendrick MD Summary Hospital Course Hospital Course: Discharge Diagnosis: 1. Right sided facial droop. 2. Headache. 3. Diplopia (right gaze) 4. Right sided body tingling 5. Right LE weakness 6. HLD 7. CAD Hospital Course: The patient was admitted with right-sided facial droop. The initial thought was that this is likely Escudero's palsy. His initial MRI, CTA and CT were negative. He was given dual antiplatelet therapy in the ED after discussion with tele neuro. The patient was started on prednisone and valacyclovir on June 12. On the morning of the he had a more pronounced right facial droop and complained of diplopia with rightward gaze. Extraocular movements were investigated in the morning of the and he seemed to have some degree of disc cut conjugate gaze when looking to the right upper right lateral and right lower pyle. He also noted diplopia from his perspective. He had a more pronounced headache on the morning of the . A repeat MRI with contrast was unremarkable. He was discussed with tele neuro again and ultimately a transfer is recommended for further evaluation. There was concern of possible other diagnoses such as myasthenia gravis, or Wang Harrington syndrome. The patient did have normal reflexes in ankles, knees, and biceps bilaterally. He did not appear to have fatigability with his ptosis. The transfer center was contacted and he was accepted for an inpatient bed for further evaluation by Neurology. For the 1st 20 hours of admission he would forehead sparing but later in the afternoon of the he does have evidence of forehead involvement of his weakness which is more consistent with Escudero's palsy. However, he was also complaining of possible vertigo and diplopia which did not fit with that diagnosis. Status at Discharge Cognitive/behavioral status at discharge: oriented Functional status at discharge: independent ambulation Overall status at discharge: patient is back to baseline Exam Vital Signs (past 8 hours): Oxygen Delivery Method Room Air Oxygen Flow Rate 0 Narrative Exam Narrative: NAD, alert and oriented. Fluent speech. Lungs are clear, normal rate and effort. Heart is regular rate and rhythm, no murmur gallop or rub. Abdomen is soft, non distended. Extremities are free of edema. Motor strength normal in arms and legs, negative pronator drift Reflexes are normal in the knees and bilaterally. He has a right facial droop, right ptosis, a dry right eye, and a pronounced flaccid forehead. He complains of diplopia with any gaze movements to the right upper right lateral are right lower pyle. He appears to have some degree of dysconjugate gaze in those failed. The diplopia is binocular. Objective Labs 06/12/25 14:31 06/12/25 14:31 [facility] Social History household members: spouse Smoking Status: Never smoker alcohol intake: never Discharge Assessment & Plan Assessment and Plan Assessment: 1. Right sided facial droop. 2. Headache. 3. Diplopia (right gaze) 4. Right sided body tingling 5. HLD 6. CAD Plan of Treatment: Transfer to [facility] for neurologic evaluation. Note that this patient presented with what early Escudero's Tamia this looks more like Escudero's palsy now with forehead involvment. However the patient was complaining of diplopia which is not consistent with the diagnosis. This case was discussed with Neurology and he will require more advance neurologic evaluation. Discharge Plan Discharge Plan Patient Disposition: [facility] Other facility: [facility] VTE Deep Vein Thrombosis/Pulmonary Embolism Present on Admission: No
[2025-06-14 08:00] VITALS: BP 129/88; PULSE 77; RESP 14; TEMP 36.2; O2SAT 96
[2025-06-14] MEDS: ACETAMINOPHEN 325 MG TABLET 650 MG PO (08:43)
[2025-06-14] MEDS: CLOPIDOGREL 75 MG TABLET PO (08:43)
[2025-06-14] MEDS: ASPIRIN EC 81 MG TABLET PO (08:43)
[2025-06-14] MEDS: SODIUM CHLORIDE 0.9% FLUSH 10 ML IV (08:44)
[2025-06-14] MEDS: PROCHLORPERAZINE 10 MG/2 ML VIAL IV (10:57)
[2025-06-14] MEDS: ONDANSETRON 4 MG/2 ML INJ IV (13:12)
--- NOTE | 2025-06-14 13:16 | PC.NURSE ---
Day shift: Pt left [facility] at approx 1318 and is going to via [facility]. Spouse in room and knows the plan. Pt is also aware of this plan. Pt has all personal belongings. Was given IV Zofran just prior to leaving. Also, per Dr Ornelas, Pt did not need ALS transport (going BLS).
== END 2025-06-14 13:19 | disposition short-term general hospital (02) | DRG 123 ==
LOC: ED 15:32 → AC 06-13 11:26
PROVIDERS: Internal Medicine; Admitting Provider Hospitalist; Emergency Provider Emergency Medicine; Referring Provider Emergency Medicine; Visit Provider Hospitalist
DX: H53.2 Diplopia (principal); R29.810 Facial weakness; R51.9 Headache, unspecified; R20.2 Paresthesia of skin; R47.89 Other speech disturbances; M54.2 Cervicalgia; E78.5 Hyperlipidemia, unspecified; I25.10 Atherosclerotic heart disease of native coronary artery without angina pectoris; R53.1 Weakness; H02.401 Unspecified ptosis of right eyelid
CPT/HCPCS: 36415; 70450; 70496; 70498; 70551; 70553; 80053; 80061; 82550; 82962; 83036; 84484; 85025; 85610; 85730; 93005; 96361; 96374; 97116; 97161; 97530; 99284; A9270; A9579; J0780; J2405; Q9967